=== PATIENT | female | born 1985 | race Caucasian/White ===

== ENCOUNTER 2020-04-08 16:44 | Emergency (ER) | payer OTHER, SELFPAY ==
--- NOTE | 2020-04-08 16:48 | DI.US.S_ITS ---
PROCEDURE: US OB LIMITED INDICATIONS: HEMATURIA, PAIN OUTSIDE/PRIOR DATING DATA: Last menstrual period (LMP): 12/24/19. LMP-based estimated date of delivery (SHERRI): 09/29/20. First dating scan (date and location): 04/08/20. Estimated date of delivery (SHERRI) from first dating scan: 09/27/20. TECHNIQUE: Real-time scanning was performed of the fetus, with image documentation and biometric measurements. Endovaginal scanning: Not performed COMPARISON: None. FINDINGS: General: A single living intrauterine gestation is present. Presentation: Vertex. Placenta: Placental position is anterior fundal, without previa. Amniotic fluid index: Not measured due to early gestational age. heart rate: 158 beats per minute. Maternal cervical canal: Not measured. biometrics: Biparietal diameter: 2.8 cm, correlating with 15 weeks and 0 days Head circumference: 11.4 cm, correlating with 15 weeks and 4 days Abdominal circumference: 9.6 cm, correlating with 15 weeks and 5 days Femur length: 1.8 cm, correlating with 15 weeks and 3 days Estimated gestational age from initial scan: not applicable. Composite gestational age from present scan: 15 weeks and 3 days Estimated weight and percentile: Not measured Other: There is moderate left-sided hydronephrosis of the maternal kidney. Urinary bladder volume measured 1660 mL prevoid with a large post void residual volume of 1066 mL. There is an anterior uterine fibroid measuring 3.7 x 2.8 x 3.0 cm. Maternal ovaries are not visualized on today's study. IMPRESSION: 1. Single living intrauterine gestation with an estimated sonographic gestational age of approximately 15 weeks and 3 days. Followup recommended. 2. Moderate left-sided hydronephrosis with a large prevoid and postvoid urinary bladder volume. Post void residual volume measured 1066 mL. 3. Anterior uterine fibroid measuring up to 3.7 cm in size. Dictated by: Jossue Díaz M.D. on 04/08/2020 at 18:49 Approved by: Jossue Díaz M.D. on 04/08/2020 at 18:55
[2020-04-08 17:08] VITALS: BP 140/61; PULSE 132; RESP 14; TEMP 36.8; O2SAT 99; BMI 32.8
--- NOTE | 2020-04-08 17:23 | ED.GENADULT ---
HPI - General Adult General Chief complaint: OB/Uterine Contractions Stated complaint: needs US, thinks molar preg Time Seen by Provider: 04/08/20 16:47 Source: patient Mode of arrival: Ambulatory Limitations: no limitations History of Present Illness HPI narrative: 34-year-old female who is unsure of how many times she has been but does have 4 live children at home and states that she has had multiple miscarriages in the past. States that it is her belief that she is 14 weeks EGA. Has not had an ultrasound during this up to this point. Has had over the past couple days/weeks some urinary hesitancy, frequency and dribbling. Also potentially a passing mucus and blood. She thinks that this is coming from her urethra but is unsure. Saw nurse senior enterprise architect today who states that she is measuring more in the range of 18 weeks EGA and the concern was secondary to the passage of the mucus and blood the potentially she has a molar . Was sent to the emergency department Related Data Home Medications Medication Instructions Recorded Confirmed B [id number] acid-Zn [Larissa B 1 tab PO QDAY #0 07/02/17 Strong] vit-iron fum-folic ac 1 cap PO QDAY #0 07/02/17 [Mynatal] Previous Rx's Medication Instructions Recorded cephalexin [Keflex] 500 mg PO BID 7 Days #14 cap 04/08/20 Allergies Allergy/AdvReac Type Severity Reaction Status Date / Time egg [EGG] Allergy Severe Unverified 03/01/18 12:46 Latex, Natural Rubber Allergy Mild Unverified 03/01/18 12:46 [LATEX, NATURAL RUBBER] Milk Containing Products Allergy Mild Unverified 03/01/18 12:46 [MILK CONTAINING PRODUCTS] Review of Systems Constitutional Constitutional: Denies fever(s) and Denies headache(s) ENT Ears, Nose, Mouth, and Throat: Denies headache(s) Cardiovascular Cardiovascular: Denies chest pain and Denies dyspnea Respiratory Respiratory: Denies dyspnea Gastrointestinal Gastrointestinal: Reports abdominal pain () Comments: Morning sickness Genitourinary Genitourinary: Reports dysuria, Reports urinary hesitancy and Reports urinary urgency Musculoskeletal Musculoskeletal: Denies myalgias and Denies arthralgias Integumentary/Breasts Skin/Breast: Denies rash Neurologic Neurologic: Denies behavioral changes and Denies headache(s) Psychiatric Psychiatric: Denies behavioral changes Hematologic/Lymphatic Hematologic/Lymphatic: Denies easy bleeding and Denies easy bruising Patient History Medical History 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) Vaginal bleeding during , antepartum (Inactive) Surgical History (Updated 03/21/18 @ 06:13 by Conversion Provider) History of third molar tooth extraction Social History Smoking Status: Unknown if ever smoked Smoking Status: Unknown if ever smoked alcohol intake frequency: holidays/special occasions only Substance Use Type: does not use Exam Initial Vital Signs Initial Vital Signs: Vital Signs Temperature 98.2 F 04/08/20 17:08 Pulse Rate 132 H 04/08/20 17:08 Respiratory Rate 14 04/08/20 17:08 Blood Pressure 140/61 04/08/20 17:08 Pulse Oximetry 99 04/08/20 17:08 Const General: cooperative, healthy appearing and comfortable Limitations: mental status not altered HENWA Head: normal to inspection and normocephalic Resp Effort & Inspection: normal respiratory effort Cardio Rate: tachycardic GI Other: Gravid abdomen Skin Lesions: no lesions Rashes: no rashes Neuro General: alert, awake and oriented x3 Cognition: normal cognition Speech: speech normal Extrem General: normal to inspection and capillary refill normal Psych Appearance: grossly normal and well kempt Course Orders Ordered: ED Orders 04/08/20 16:48 US OB limited Stat 04/08/20 17:25 ABO RH Type Stat Complete Blood Count AUTO DIFF Stat Comprehensive Metabolic Panel Stat HCG Quantitative /Beta subunit Stat Lipase Stat 04/08/20 18:11 Urine Culture Stat Urine Microscopic Stat Vital Signs Vital signs: Vital Signs - 8 hr 04/08/20 17:08 04/08/20 18:16 Temperature 98.2 F Pulse Rate 132 H Respiratory Rate 14 17 Blood Pressure 140/61 Blood Pressure [Right Arm] 117/84 Pulse Oximetry 99 99 Medical Decision Making Lab Data Lab results reviewed: Yes I reviewed the patient's lab results. Result diagrams: 04/08/20 17:25 04/08/20 17:25 Labs: Lab Results 04/08/20 04/08/20 04/08/20 Range/Units 17:25 17:25 17:25 WBC 8.8 (4.5-11.0) X10^3/uL RBC 4.24 (4.0-5.2) X10^6/uL Hgb 13.1 (12.0-16.0) g/dL Hct 37.8 (36-46) % MCV 89.2 (80-100) fL MCH 30.9 (26-34) PG MCHC 34.6 (30-36) % RDW 13.0 (11.6-14.8) % Plt Count 375 (150-400) X10^3/uL Neut % (Auto) 69.9 (50-75) % Lymph % (Auto) 24.8 L (25-40) % Collier % (Auto) 4.8 (3-14) % Eos % (Auto) 0.3 L (2-4) % Baso % (Auto) 0.2 (0-2) % Neut # (Auto) 6100 (9403-3215) /uL Lymph # (Auto) 2200 (6759-4512) /uL Collier # (Auto) 400 (0-900) /uL Eos # (Auto) 0 (0-450) /uL Baso # (Auto) 0 (0-100) /uL Sodium 136 L (137-145) mmol/L Potassium 4.1 (3.4-5.1) mmol/L Chloride 104 (98-107) mmol/L Carbon Dioxide 23 (22-32) mmol/L BUN 10 (7-17) mg/dL Creatinine 0.57 (0.52-1.04) mg/dL Estimated GFR > 60.0 (>60) mL/min BUN/Creatinine Ratio 17.5 (6-22) Glucose 115 H (70-100) mg/dL Calcium 9.7 (8.4-10.2) mg/dL Total Bilirubin 0.4 (0.2-1.3) mg/dL AST 25 (14-36) IU/L ALT 19 (<35) IU/L Alkaline Phosphatase 58 (38-126) U/L Total Protein 7.3 (6.3-8.2) g/dL Albumin 4.2 (3.5-5.0) g/dL Globulin 3.1 (1.7-4.1) g/dL Albumin/Globulin Ratio 1.4 (1.0-2.8) Lipase 126 (23-300) U/L HCG, Quant 57645 mIU/mL Urine RBC (0-5/HPF) Urine WBC (0-5/HPF) Ur Squamous Epith Cells (0-5/HPF) Amorphous Sediment Urine Bacteria (None) Ur Culture Indicated? Blood Type O Positive 04/08/20 Range/Units 18:11 WBC (4.5-11.0) X10^3/uL RBC (4.0-5.2) X10^6/uL Hgb (12.0-16.0) g/dL Hct (36-46) % MCV (80-100) fL MCH (26-34) PG MCHC (30-36) % RDW (11.6-14.8) % Plt Count (150-400) X10^3/uL Neut % (Auto) (50-75) % Lymph % (Auto) (25-40) % Collier % (Auto) (3-14) % Eos % (Auto) (2-4) % Baso % (Auto) (0-2) % Neut # (Auto) (2396-6948) /uL Lymph # (Auto) (4288-2534) /uL Collier # (Auto) (0-900) /uL Eos # (Auto) (0-450) /uL Baso # (Auto) (0-100) /uL Sodium (137-145) mmol/L Potassium (3.4-5.1) mmol/L Chloride (98-107) mmol/L Carbon Dioxide (22-32) mmol/L BUN (7-17) mg/dL Creatinine (0.52-1.04) mg/dL Estimated GFR (>60) mL/min BUN/Creatinine Ratio (6-22) Glucose (70-100) mg/dL Calcium (8.4-10.2) mg/dL Total Bilirubin (0.2-1.3) mg/dL AST (14-36) IU/L ALT (<35) IU/L Alkaline Phosphatase (38-126) U/L Total Protein (6.3-8.2) g/dL Albumin (3.5-5.0) g/dL Globulin (1.7-4.1) g/dL Albumin/Globulin Ratio (1.0-2.8) Lipase (23-300) U/L HCG, Quant mIU/mL Urine RBC 1-5/hpf (0-5/HPF) Urine WBC 10-30/hpf H (0-5/HPF) Ur Squamous Epith Cells 1-5 /hpf (0-5/HPF) Amorphous Sediment 2+ Urine Bacteria Moderate (10-30) H (None) Ur Culture Indicated? Specimen cultured Blood Type Urine Dip Bedside Urine Glucose Negative Bedside Urine Bilirubin - Negative Bedside Urine Ketone - Negative Urine Specific [place] 1.010 Bedside Urine Occult Blood +++ Bedside Urine pH 7.5 Bedside Urine Protein ++ 100 Bedside Urine Urobilinogen - Negative Bedside Urine Nitrite - Negative Bedside Urine Leukocytes +++ 500 Esterase Point of care testing: Urine Dip Bedside Urine Glucose Negative Bedside Urine Bilirubin - Negative Bedside Urine Ketone - Negative Urine Specific [place] 1.010 Bedside Urine Occult Blood +++ Bedside Urine pH 7.5 Bedside Urine Protein ++ 100 Bedside Urine Urobilinogen - Negative Bedside Urine Nitrite - Negative Bedside Urine Leukocytes +++ 500 Esterase Imaging Data US - OB: Radiologist's Impression: MDM Narrative Medical decision making narrative: Some discrepancy between dates from with the patient thinks how far along she is in the the size that she is measuring. Patient was sent for ultrasound. Patient is Rh positive. No indication for RhoGAM. Urinalysis is concerning for urinary tract infection. Initial ultrasound showed a urinary bladder with approximately 1600 cc of urine in it. Postvoid residual had approximately 1 L. It did show a single live intrauterine without complication. Plan abuse start patient on antibiotics for the urinary tract infection. Will send home with a prescription. A Agudelo catheter was placed. Patient already has a scheduled appointment with a urologist in 2 days. She was instructed to contact them for follow-up. She was given return precautions. She expressed understanding and agreement. Discharge Plan Departure Patient Disposition: Home Clinical Impression: Acute urinary retention Qualifiers: Weeks of gestation: 14 weeks Qualified Code(s): Z3A.14 - 14 weeks gestation of Urinary tract infection Qualifiers: Urinary tract infection type: site unspecified Hematuria presence: without hematuria Qualified Code(s): N39.0 - Urinary tract infection, site not specified Instructions: DI for Urinary Tract Infection (UTI), How to Care for Your Agudelo Catheter -- Female, DI for Urinary Retention in Women Activity Restrictions/Additional Instructions: Recommend that you keep your follow-up with the urologist it that is already scheduled. You were given your 1st dose of antibiotics here in the emergency department. Fill the prescription and start taking them tomorrow as directed. Take care the Agudelo catheter as directed. Return to the emergency department for any new or worsening symptoms Prescriptions: New cephalexin [Keflex] 500 mg capsule 500 mg PO BID 7 Days Qty: 14 RF: 0 No Action vit-iron fum-folic ac [Mynatal] 1 EACH capsule 1 cap PO QDAY Qty: 0 RF: 0 B [id number] acid-Zn [Larissa B Strong] 1 EACH tablet 1 tab PO QDAY Qty: 0 RF: 0 Referrals: Klaudia Cobb MD [Primary Care Provider] -
[2020-04-08 17:34] LABS: Add Manual Diff / Slide Review NO; Basophils Absolute Auto 0 /uL (0-100); Basophils Percent Auto 0.2 % (0-2); Eosinophils Absolute Auto 0 /uL (0-450); Eosinophils Percent Auto 0.3 % (2-4); Hematocrit 37.8 % (36-46); Hemoglobin 13.1 g/dL (12.0-16.0); Lymphocytes Absolute Auto 2200 /uL (1100-4500); Lymphocytes Percent Auto 24.8 % (25-40); Mean Corpuscular HGB Conc 34.6 % (30-36); Mean Corpuscular Hemoglobin 30.9 PG (26-34); Mean Corpuscular Volume 89.2 fL (80-100); Monocytes Absolute Auto 400 /uL (0-900); Monocytes Percent Auto 4.8 % (3-14); Neutrophils Absolute Auto 6100 /uL (1500-7000); Neutrophils Percent Auto 69.9 % (50-75); Platelet Count 375 X10^3/uL (150-400); Red Blood Cell Count 4.24 X10^6/uL (4.0-5.2); White Blood Cell Count 8.8 X10^3/uL (4.5-11.0)
[2020-04-08 17:55] LABS: Alanine Aminotransferase 19 IU/L (<35); Albumin 4.2 g/dL (3.5-5.0); Albumin Globulin Ratio 1.4 (1.0-2.8); Alkaline Phosphatase 58 U/L (38-126); Aspartate Aminotransferase 25 IU/L (14-36); BUN Creatinine Ratio 17.5 (6-22); Bilirubin Total 0.4 mg/dL (0.2-1.3); Blood Urea Nitrogen 10 mg/dL (7-17); Calcium 9.7 mg/dL (8.4-10.2); Carbon Dioxide 23 mmol/L (22-32); Chloride 104 mmol/L (98-107); Estimated Glomerular Filt Rate > 60.0 mL/min (>60); Globulin 3.1 g/dL (1.7-4.1); Glucose 115 mg/dL (70-100); HEMOLYSIS < 15 (0-50); Lipase 126 U/L (23-300); Potassium 4.1 mmol/L (3.4-5.1); Sodium 136 mmol/L (137-145); Total Protein 7.3 g/dL (6.3-8.2)
[2020-04-08 18:16] VITALS: BP 117/84; RESP 17; O2SAT 99
[2020-04-08 18:37] LABS: HCG Quantitative /Beta subunit 23571 mIU/mL
[2020-04-08 18:51] LABS: Amorphous Sediment Urine 2+; Bacteria Urine Moderate (10-30); Culture Indicated Urine Specimen Cultured; RBC Urine 1-5/HPF (0-5/HPF); Squamous Epithelial Cell Urine 1-5 /HPF (0-5/HPF); WBC Urine 10-30/HPF (0-5/HPF)
[2020-04-08] MEDS: cephALEXin 250 MG CAPSULE 500 MG PO (19:34)
== END 2020-04-08 20:09 | disposition home or self-care (01) ==
PROVIDERS: Emergency Provider Emergency Medicine; PCP Obstetrics & Gynecology
DX: O26.892 Other specified pregnancy related conditions, second trimester (principal); N39.0 Urinary tract infection, site not specified; R33.9 Retention of urine, unspecified; Z3A.14 14 weeks gestation of pregnancy
CPT/HCPCS: 36415; 51701; 76815; 80053; 81003; 81015; 83690; 84702; 85025; 86900; 86901; 87086; 99284